=== PATIENT | male | born 1985 | race Caucasian/White ===

== ENCOUNTER 2016-11-09 15:41 | Emergency (ER) | payer MEDICAID ==
[2016-11-09] MEDS ORDERED: Alum Hydrox/Mag Hydrox/Simeth 15 ML, Lidocaine 2% 15 ML PO ONE ×2 (18:26)
[2016-11-09 18:47] VITALS: BP 124/67
--- NOTE | 2016-11-09 19:30 | EDM.PDOC ---
ED HPI GENERAL MEDICAL PROBLEM - General Chief Complaint: Abdominal Pain Stated Complaint: ABD PAIN EVAL FOR [facility] ([place], [place]) Time Seen by Provider: 11/09/16 18:30 Source of Information: Reports: Patient History Limitations: Reports: No Limitations - History of Present Illness INITIAL COMMENTS - FREE TEXT/NARRATIVE: Cholo is a 31 year old male who arrives to the ED today from [facility] for evaluation of abdominal pain and left sided jaw pain. Patient denies any fever/ chills/nausea/vomiting or diarrhea. Patient reports he was recently diagnosed and treated for H. Pylori. He was on Prilosec for 2 weeks, has been off of this for the last couple of weeks. Patient reports a hx of "stomach ulcers" as well. Rakesh Batista did call and speak to one of the RNs here in the emergency department and informed them that the patient will not be allowed back to their facility as other residents are afraid of him. Onset: Today Abdominal Pain Score (Numeric/FACES): 10 - Related Data Allergies Allergy/AdvReac Type Severity Reaction Status Date / Time No Known Allergies Allergy Verified 11/09/16 17:08 Home Meds: Home Meds NK [No Known Home Meds] 11/09/16 [History] Past Medical History Other Genitourinary History: GI BLEED Psychiatric History: Reports: Addiction Social & Family History - Tobacco Use Smoking Status *Q: Unknown Ever Smoked ED ROS GENERAL - Review of Systems Review Of Systems: ROS reveals no pertinent complaints other than HPI. ED EXAM, GI/ABD - Physical Exam Exam: See Below Exam Limited By: No Limitations General Appearance: Alert, WD/WN, No Apparent Distress Throat/Mouth: Normal Inspection, Normal Oropharynx Head: Atraumatic, Normocephalic Neck: Normal Inspection Respiratory/Chest: No Respiratory Distress, Lungs Clear Cardiovascular: Normal Peripheral Pulses, Regular Rate, Rhythm, No Murmur GI/Abdominal Exam: Normal Bowel Sounds, Soft, Non-Tender, No Organomegaly Back Exam: Normal Inspection Extremities: Normal Inspection Neurological: Alert, Oriented, CN II-XII Intact Psychiatric: Normal Affect Skin Exam: Warm, Dry, Intact Course - Vital Signs Last Recorded V/S: Last Vital Signs Temp 36.0 C 11/09/16 18:45 Pulse 61 11/09/16 17:05 Resp 15 11/09/16 18:45 BP 124/67 11/09/16 18:45 Pulse Ox 99 11/09/16 18:45 Cholo is a 31-year-old male who presents to the emergency department today [facility] for evaluation of abdominal pain. Patient reports a history of recent H. pylori which he was treated for and has since not been on Prilosec. Patient denies any fever, hematemesis, he does endorse a "darker stool" this morning.please refer to history of present illness and focused exam, patient on exam is well-hydrated, he is nontoxic appearing, his remaining exam is rather unremarkable with really no obvious abdominal tenderness on exam. Blood work was obtained today which returns within normal white count of 7.2. Hemoglobin is stable at 13.1. Comprehensive metabolic panel returns with a mildly low potassium of 3.5, glucose is 114 and calcium is 8.2. Patient's lipase is mildly elevated at 474. I did order a GI cocktail for patient here in the emergency department which she refused stating to the nurse that he would "need something stronger, likely through an IV" for his pain. I did check patient's opioid use on the [place] prescription monitoring program, he had 10 oxycodone tablets filled at [facility] on the , otherwise he since history mostly is his gabapentin. Patient was given an oral dose of potassium here in the emergency department, I feel he would benefit from being started back on his Prilosec.I would like patient seen by his primary care provider in the next few days to reevaluate her abdominal pain and have a repeat lipase checked at that time. In the meantime I would encourage patient to stay very well-hydrated and take Prilosec as prescribed. Patient should avoid greasy/fatty/spicy foods. I will give patient a small supply of tramadol for his pain. Reasons to return to the emergency department were discussed. Patient is agreeable to plan of care and was discharged in stable condition. - Orders/Labs/Meds Labs: Laboratory Tests 11/09/16 11/09/16 Range/Units 18:37 18:37 WBC 7.2 (4.5-11.0) K/uL RBC 4.21 L (4.30-5.90) M/uL Hgb 13.1 (12.0-15.0) g/dL Hct 39.4 L (40.0-54.0) % MCV 94 (80-98) fL MCH 31 (27-31) pg MCHC 33 (32-36) % Plt Count 261 (150-400) K/uL Neut % (Auto) 54 (36-66) % Lymph % (Auto) 30 (24-44) % Wayne % (Auto) 10 H (2-6) % Eos % (Auto) 5 H (2-4) % Baso % (Auto) 1 (0-1) % Sodium 143 (140-148) mmol/L Potassium 3.5 L (3.6-5.2) mmol/L Chloride 107 (100-108) mmol/L Carbon Dioxide 28 (21-32) mmol/L Anion Gap 11.5 (5.0-14.0) mmol/L BUN 11 (7-18) mg/dL Creatinine 1.0 (0.8-1.3) mg/dL Est Cr Clr Drug Dosing 117.48 mL/min Estimated GFR (MDRD) > 60 (>60) Glucose 114 H (74-106) mg/dL Calcium 8.2 L (8.5-10.1) mg/dL Total Bilirubin 0.4 (0.2-1.0) mg/dL AST 17 (15-37) U/L ALT 29 (12-78) U/L Alkaline Phosphatase 57 (46-116) U/L Total Protein 6.6 (6.4-8.2) g/dL Albumin 3.5 (3.4-5.0) g/dL Globulin 3.1 (2.3-3.5) g/dL Albumin/Globulin Ratio 1.1 L (1.2-2.2) Lipase 474 H (73-393) U/L Meds: Medications Discontinued Medications Generic Name Dose Route Start Last Admin Trade Name Freq PRN Reason Stop Dose Admin Al Hydroxide/Mg Hydroxide 15 0 ml 11/09/16 18:26 11/09/16 18:45 ml/ Lidocaine HCl 15 ml PO 11/09/16 18:27 Not Given ONETIME ONE Departure - Departure Time of Disposition: 20:15 Disposition: Home, Self-Care 01 Condition: Good Clinical Impression: Elevated lipase Abdominal pain Qualifiers: Abdominal location: generalized Qualified Code(s): R10.84 - Generalized abdominal pain - Discharge Information Instructions: Abdominal Pain, Adult, [id number], Lipase Test Referrals: PCP,None [Primary Care Provider] - Forms: ED Department Discharge Additional Instructions: Cholo, I want you to resume your Prilosec daily. Your lipase which is an enzyme your pancreas makes was mildly elevated today. I would like you seen in clinic early this week for a recheck. You should be drinking plenty of fluids, avoid any alcohol, spicy or fatty foods. You can take ibuprofen or Tylenol for pain, I have given you a small supply of tramadol which is a narcotic, do not drive if you take this. If you develop any worsening symptoms or concerns please return to the emergency department.
[2016-11-09] MEDS ORDERED: Potassium Chloride 20 MEQ Tab.ER PO ONE (19:46)
== END 2016-11-09 20:07 | disposition home or self-care (01) ==
LOC: JP.ED 15:41
DX: R10.84 Generalized abdominal pain (principal); R74.8 Abnormal levels of other serum enzymes
CPT/HCPCS: 36415; 80053; 83690; 85025; 99284; A9270